=== PATIENT | female | born 1970 | race Caucasian/White ===

== ENCOUNTER 2016-05-11 22:29 | Emergency (ER) | payer OTHER ==
[~2016-05-11] VITALS: Ht 167.6 cm; Wt 79.5 kg
[~2016-05-11 22:29] MED LIST: FLEXERIL10 MG PO; LORATADINE10 MG PO; MAXALT MLT10 MG/TAB PO; NEXIUM40 MG PO; TOPAMAX 100MG100 MG PO
[2016-05-11 22:43] VITALS: TEMP 97.8
[2016-05-11 23:41] LABS: BASO % 0.2 % (0.0-2.0); EOS # 0.1 (0.0-0.7); EOS % 1.5 % (0-4.0); GRAN % 87.2 % (42.2-75.2); LYMPH # 0.7 (1.2-3.4); LYMPH % 7.9 % (20.0-51.0); MEAN CELL VOLUME 94 fl (80.0-100.0); MEAN CORPUSCULAR HEMOGLOBIN 31 pg (27.0-31.0); MEAN CORPUSCULAR HGB CONC 33 g/dl (33.0-37.0); MEAN PLATELET VOLUME 11.3 fl (7.4-10.4); MONO # 0.3 (0.1-0.6); MONO % 2.9 % (1.7-9.3); PLATELET COUNT 207 K/mm3 (130-400); RED BLOOD COUNT 3.84 M/mm3 (4.10-5.30); REDCELL DISTRIBUTION WIDTH-CV 12.9 % (11.5-14.5); WHITE BLOOD COUNT 9.2 K/mm3 (4.8-10.8)
[2016-05-11 23:43] LABS: HEMATOCRIT 35.9 % (37.0-47.0)
[2016-05-11 23:50] LABS: ADJUSTED CALCIUM 8.9 mg/dL (8.4-10.2); BILIRUBIN,TOTAL 0.8 mg/dL (0.0-1.0); CALCIUM 8.9 mg/dL (8.4-10.2); CREATININE, serum 0.78 mg/dL (0.52-1.25); POTASSIUM 3.4 mmol/L (3.4-5.0)
[2016-05-12 00:09] LABS: INFLUENZA B NEGATIVE
[2016-05-12 00:19] LABS: PH 8 (5-8); URINE APPEARANCE Cloudy; URINE BACTERIA None Seen /hpf; URINE BILIRUBIN Positive (NEGATIVE); URINE BLOOD Negative (NEGATIVE); URINE COLOR Amber; URINE GLUCOSE Negative (NEGATIVE); URINE KETONE Negative (NEGATIVE); URINE UROBILINOGEN >=4.0 mg/dL (NEGATIVE)
[2016-05-12] MEDS ORDERED: FLEXERIL 1010 MG/TAB PO (00:37)
[2016-05-12] MEDS ORDERED: CIPRO 500MG TA500 MG PO (00:37)
[2016-05-12] MEDS ORDERED: TYLENOL W/COD1 UDTAB PO (00:38)
[2016-05-12] MEDS ORDERED: PHENERGAN 25 TA25 MG PO (00:38)
[2016-05-12] MEDS ORDERED: LUNESTA3 MG PO (00:39)
[2016-05-12] MEDS ORDERED: NAPROSYN500 MG PO (00:39)
[2016-05-12] MEDS ORDERED: PROAIR HFA0.09 MG/AC IH (00:40)
[2016-05-12] MEDS ORDERED: ZOFRAN ODT4 MG PO (01:56)
[2016-05-12 02:01] VITALS: BP 130/87; PULSE 97
== END 2016-05-12 02:10 | disposition home or self-care (01) ==
LOC: COL.ER 22:29
PROVIDERS: Emergency Medicine
DX: R11.2 Nausea with vomiting, unspecified (principal); B34.9 Viral infection, unspecified; I25.10 Atherosclerotic heart disease of native coronary artery without angina pectoris; Z90.710 Acquired absence of both cervix and uterus
CPT/HCPCS: J2405; J2550; J7030; Q9967

== ENCOUNTER 2016-08-02 20:20 | Emergency (ER) | payer OTHER ==
[~2016-08-02] VITALS: Ht 172.7 cm; Wt 77.3 kg
[~2016-08-02 20:20] MED LIST changes: +CIPRO 500MG TA500 MG PO; +FLEXERIL 1010 MG/TAB PO; +LUNESTA3 MG PO; +NAPROSYN500 MG PO; +PHENERGAN 25 TA25 MG PO; +PROAIR HFA0.09 MG/AC IH; +TYLENOL W/COD1 UDTAB PO; +ZOFRAN ODT4 MG PO
[2016-08-02 20:21] VITALS: TEMP 97.9
[2016-08-02 21:06] LABS: INFLUENZA B NEGATIVE
[2016-08-02 21:09] LABS: BASO # 0.1 (0.0-0.2); BASO % 0.8 % (0.0-2.0); EOS # 0.1 (0.0-0.7); EOS % 1.5 % (0-4.0); GRAN # 5.7 (1.4-6.5); GRAN % 79.6 % (42.2-75.2); HEMATOCRIT 37.4 % (37.0-47.0); HEMOGLOBIN 12.8 g/dl (12.5-16.0); LYMPH # 0.8 (1.2-3.4); LYMPH % 11.6 % (20.0-51.0); MEAN CELL VOLUME 93 fl (80.0-100.0); MEAN CORPUSCULAR HEMOGLOBIN 32 pg (27.0-31.0); MEAN CORPUSCULAR HGB CONC 34 g/dl (33.0-37.0); MEAN PLATELET VOLUME 11.1 fl (7.4-10.4); MONO # 0.5 (0.1-0.6); MONO % 6.2 % (1.7-9.3); PLATELET COUNT 224 K/mm3 (130-400); RED BLOOD COUNT 4.04 M/mm3 (4.10-5.30); REDCELL DISTRIBUTION WIDTH-CV 12.3 % (11.5-14.5); WHITE BLOOD COUNT 7.2 K/mm3 (4.8-10.8)
[2016-08-02 21:23] LABS: ADJUSTED CALCIUM 8.9 mg/dL (8.4-10.2); ALBUMIN 4.7 gm/dL (3.5-5.0); BILIRUBIN,TOTAL 0.5 mg/dL (0.0-1.0); C-REACTIVE PROTEIN 1.6 mg/dL (0.0-0.9); CALCIUM 9.5 mg/dL (8.4-10.2); CREATININE, serum 0.85 mg/dL (0.52-1.25); POTASSIUM 3.9 mmol/L (3.4-5.0); TOTAL PROTEIN 7.4 gm/dL (6.4-8.2)
[2016-08-02] MEDS ORDERED: DOXYCYCLINE 10100 MG PO (22:38)
[2016-08-02 23:17] VITALS: BP 140/86; PULSE 91
== END 2016-08-02 23:19 | disposition home or self-care (01) ==
LOC: COL.ER 20:20
PROVIDERS: Emergency Medicine
DX: J32.9 Chronic sinusitis, unspecified (principal)
CPT/HCPCS: J2405; J7030

== ENCOUNTER 2019-01-20 02:48 | Emergency (ER) | payer OTHER ==
[~2019-01-20] VITALS: Ht 167.6 cm; Wt 95.5 kg
[~2019-01-20 02:48] MED LIST changes: +DOXYCYCLINE 10100 MG PO
[2019-01-20 02:53] VITALS: BP 119/74; TEMP 97.7
[2019-01-20] MEDS ORDERED: CEPHALEXIN500 M1 PO (03:14)
[2019-01-20 03:23] VITALS: PULSE 73
== END 2019-01-20 03:20 | disposition home or self-care (01) ==
LOC: COL.ER 02:48
DX: L03.031 Cellulitis of right toe (principal); G43.909 Migraine, unspecified, not intractable, without status migrainosus

== ENCOUNTER 2020-08-28 00:14 | Emergency (ER) | payer OTHER ==
[~2020-08-28] VITALS: Ht 167.6 cm; Wt 88.6 kg
[~2020-08-28 00:14] MED LIST changes: +CEPHALEXIN500 M1 PO
[2020-08-28 00:17] VITALS: TEMP 97.6
[2020-08-28] MEDS ORDERED: AMOXICILLIN875 MG PO (00:29)
[2020-08-28 00:44] VITALS: BP 134/78; PULSE 76
== END 2020-08-28 00:48 | disposition home or self-care (01) ==
LOC: COL.ER 00:14
DX: H66.92 Otitis media, unspecified, left ear (principal); Z90.710 Acquired absence of both cervix and uterus; Z87.891 Personal history of nicotine dependence; Z88.2 Allergy status to sulfonamides; Z79.51 Long term (current) use of inhaled steroids

== ENCOUNTER 2020-09-17 17:00 | Emergency (ER) | payer OTHER ==
[~2020-09-17] VITALS: Ht 167.6 cm; Wt 93.2 kg
[~2020-09-17 17:00] MED LIST changes: +AMOXICILLIN875 MG PO
[2020-09-17 17:56] LABS: BASO % 0.4 % (0.0-2.0); EOS # 1.9 (0.0-0.7); EOS % 17.2 % (0-4.0); GRAN # 6.7 (1.4-6.5); GRAN % 60.4 % (42.2-75.2); HEMATOCRIT 41.3 % (37.0-47.0); HEMOGLOBIN 13.7 g/dl (12.5-16.0); LYMPH # 1.7 (1.2-3.4); LYMPH % 15.8 % (20.0-51.0); MEAN CELL VOLUME 91 fl (80.0-100.0); MEAN CORPUSCULAR HEMOGLOBIN 30 pg (27.0-31.0); MEAN CORPUSCULAR HGB CONC 33 g/dl (33.0-37.0); MEAN PLATELET VOLUME 11.4 fl (7.4-10.4); MONO # 0.7 (0.1-0.6); PLATELET COUNT 271 K/mm3 (130-400); RED BLOOD COUNT 4.53 M/mm3 (4.10-5.30); REDCELL DISTRIBUTION WIDTH-CV 12.5 % (11.5-14.5)
[2020-09-17 18:05] LABS: ALBUMIN 3.7 gm/dL (3.5-5.0); BILIRUBIN,TOTAL 0.5 mg/dL (0.0-1.0); CALCIUM 8.9 mg/dL (8.4-10.2); CREATININE, serum 0.56 (0.52-1.25); POTASSIUM 3.7 mmol/L (3.4-5.0); TOTAL PROTEIN 6.7 gm/dL (6.4-8.2)
[2020-09-17 18:59] LABS: COLLECTION METHOD CLEAN CATCH
[2020-09-17 19:06] LABS: PH 7 (5-8); SQUAMOUS EPITHELIAL 0-2 /hpf; URINE APPEARANCE Clear; URINE BACTERIA None Seen /hpf; URINE BILIRUBIN Negative (NEGATIVE); URINE BLOOD Negative (NEGATIVE); URINE COLOR Yellow; URINE GLUCOSE Negative (NEGATIVE); URINE KETONE Negative (NEGATIVE); URINE LEUKOCYTE ESTERASE Negative (NEGATIVE); URINE NITRATE Negative (NEGATIVE); URINE PROTEIN(semi-quant) Negative (NEGATIVE); URINE RBC 0-2 /hpf; URINE UROBILINOGEN Negative (NEGATIVE)
[2020-09-17 21:44] VITALS: BP 139/90; PULSE 89; TEMP 98.9
== END 2020-09-17 21:45 | disposition home or self-care (01) ==
LOC: COL.ER 17:00
PROVIDERS: Physician Assistant
DX: K52.9 Noninfective gastroenteritis and colitis, unspecified (principal); I10 Essential (primary) hypertension; K21.9 Gastro-esophageal reflux disease without esophagitis; Z20.822 Contact with and (suspected) exposure to COVID-19; Z79.899 Other long term (current) drug therapy
CPT/HCPCS: J1170; J2270; J2405; J7030; Q9967

== ENCOUNTER 2021-12-10 13:28 | Day surgery (SDC) | payer OTHER ==
[2021-12-10] VITALS (10 sets, daily range): BP systolic 130–158; BP diastolic 59–80; PULSE 79–95; TEMP 97.8–98.4
[~2021-12-10] VITALS: Ht 167.6 cm; Wt 106.0 kg
[2021-12-10] MEDS ORDERED: RELPAX 40MG TAB40 MG PO (13:35)
[2021-12-10] MEDS ORDERED: MULTI VITAMINS1 TAB PO (13:36)
[2021-12-10] MEDS ORDERED: EPA FISH OIL1 SGL PO (13:36)
--- NOTE | 2021-12-10 13:45 | NUR ---
Patient to room [address] [facility]. A&Ox4. VSS. IV CDI, fluids infusing. Nurse oriented the patient to location, room and call light. Denies pain, reports having a migraine. NPO for a procedure. No further needs expressed. Call light within reach
--- NOTE | 2021-12-10 17:55 | NUR ---
Patient laying in bed, complaints of a migraine. A&Ox4. VSS. IV CDI, fluids infusing. NPO for a procedure. Denies abdominal pain. Call light within reach. No further needs expressed.
--- NOTE | 2021-12-10 23:27 | NUR ---
Patient arrived to surgical unit from PACU at 1999. Drowsy, but alert and oriented. Assisted to bathroom, clear yellow urine. Voiced that there was some burning with urination. Recieved scheduled Acetaminophen per orders. Patient reports that her undrestanding was that she was staying the night tonight, and that she is being discharged tomorrow due to transportation issues. Patient also not comfortable going home at this time due to nausea. Patient continues to tolerate sips of fluids ok, but is not wanting to eat much. Had received Zofran in PACU, but has only had a cracker since coming to surgical floor. Patient voices no further questions, needs, or concerns at this time. In bed with call light within reach.
[2021-12-11 04:45] VITALS: BP 140/76; PULSE 79; TEMP 97.7
--- NOTE | 2021-12-11 05:40 | NUR ---
Patient has denied having pain and discomfort this shift. Voices no questions, needs, or concerns at this time. In bed with call light within reach.
[2021-12-11 07:01] VITALS: BP 157/69; PULSE 73; TEMP 98.4
--- NOTE | 2021-12-11 11:39 | NUR ---
DISCHARGED DISCUSSED WITH PT, ALL QUESTIONS AND CONCERNS WERE ADDRESSED, PT LEFT WITH ALL HER BELONGINGS HOME BY PRIVATE VEHICLE
== END 2021-12-11 11:40 | disposition home or self-care (01) ==
LOC: SDCO 13:28 → SURG 13:29 → SDCO 14:08 → SURG 14:09 → SDCO 19:30 → SURG 12-11 11:40
DX: N20.1 Calculus of ureter (principal)
CPT/HCPCS: C1769; G0378; G0379; J0690; J1100; J1885; J2270; J2405; J2704; J3010; Q9967